=== PATIENT | female | born 1970 | race Caucasian/White ===

== ENCOUNTER → 2018-02-18 | Day surgery (SDC) | payer OTHER ==
[~2018-02-18] MED LIST: ABILI PO; CLONAZEPAM2 MG PO; GABAPENTIN400 MG PO; LYRICA300 MG PO; NORFLEX PO; PRISTIQ ER100 MG PO
== END | disposition home or self-care (01) ==
LOC: CIR.AMB 05:44
DX: N62 Hypertrophy of breast (principal)